=== PATIENT | female | born 1985 ===

== ENCOUNTER 2021-07-16 10:35 | Inpatient (IN) | payer BC ==
[2021-07-16] MEDS ORDERED: CITRIC ACID/SODIUM CITRATE 30 ML UNIT-DOSE CUP PO ONE (12:15)
[2021-07-16] MEDS ORDERED: ELECTROLYTE-148 SOLN 1,000 ML IV ONE (12:15)
[2021-07-16] MEDS ORDERED: ELECTROLYTE-148 SOLN 1,000 ML IV SCH ×2 (12:15→14:15)
[2021-07-16 12:50] VITALS: BMI 31.7
[2021-07-16] MEDS ORDERED: morphine SULFATE/PF 1 MG/2 ML (2cc Syringe - QUVA) ONE (13:12)
[2021-07-16] MEDS ORDERED: KETOROLAC TROMETHAMINE 30 MG/1 ML VIAL ONE (13:16)
[2021-07-16] MEDS ORDERED: ONDANSETRON 4 MG/2 ML VIAL ONE (13:16)
[2021-07-16] MEDS ORDERED: PHENYLEPHRINE HCL 10 MG/1 ML SINGLE DOSE VIAL ONE (13:16)
[2021-07-16] MEDS ORDERED: ceFAZolin SODIUM 1 GM VIAL ONE (13:16)
[2021-07-16] MEDS ORDERED: OXYTOCIN 10 UNITS/ML VIAL ONE (13:16)
[2021-07-16] MEDS ORDERED: ELECTROLYTE-148 SOLN 500 ML IV ONE (14:14)
[2021-07-16] MEDS ORDERED: morphine SULFATE/PF 1 MG/2 ML (2cc Syringe - QUVA) IT ONE (14:16)
[2021-07-16] MEDS ORDERED: ePHEDrine SULFATE 50 MG/1 ML AMPULE ONE (14:19)
[2021-07-16] MEDS ORDERED: ONDANSETRON 4 MG/2 ML VIAL IVPUSH PRN (15:14)
[2021-07-16] MEDS ORDERED: ACETAMINOPHEN 1000 MG/100 ML BAG IVPB ONE (15:16)
[2021-07-16] MEDS ORDERED: ACETAMINOPHEN 325 MG TABLET (FP) PO PRN (16:15)
[2021-07-16] MEDS ORDERED: OXYTOCIN 20 UNITS in 0.9% NS 20 UNIT/1,000 ML INFUS.BAG IV ONE (16:25)
[2021-07-16] MEDS: OXYTOCIN 20 UNITS in 0.9% NS 20 UNIT/1,000 ML INFUS.BAG IV SCH (16:30)
[2021-07-16] MEDS ORDERED: ACETAMINOPHEN INJECTION 100 ML IVPB ONE (16:43)
[2021-07-16] MEDS: METHYLERGONOVINE MALEATE 0.2 MG/1 ML AMP IM PRN ×2 (19:51→23:34)
[2021-07-16] MEDS: IBUPROFEN 800 MG/8 ML IJ IVPB PRN (20:48)
[2021-07-17] MEDS: METHYLERGONOVINE MALEATE 0.2 MG/1 ML AMP IM PRN (03:15)
[2021-07-17] MEDS: IBUPROFEN 800 MG/8 ML IJ IVPB PRN (03:16)
[2021-07-17] MEDS: OXYTOCIN 20 UNITS in 0.9% NS 20 UNIT/1,000 ML INFUS.BAG IV SCH (06:28)
[2021-07-17 08:20] LABS: BASO % 0.2 % (0-2.0); EOS % 0.7 % (0-4.5); HEMATOCRIT 28.5 % (32.4-45.2); HEMOGLOBIN 9.2 GM/dL (10.7-15.3); LYMPH % 13.5 % (8-40); MCH 25.8 pg (25.7-33.7); MCHC 32.2 g/dl (32.0-36.0); MEAN CELL VOLUME 80.2 fl (80-96); MEAN PLT VOLUME 7.3 fl (7.5-11.1); MONO % 6.3 % (3.8-10.2); NEUT % 79.3 % (42.8-82.8); PLATELET COUNT 347 10^3/uL (134-434); RBC 3.56 M/mm3 (3.60-5.2); WHITE BLOOD COUNT 12.7 K/mm3 (4.0-10.0)
[2021-07-17] MEDS ORDERED: SUCCINYLCHOLINE CHLORIDE 200 MG/10 ML SYRINGE ONE (08:26)
[2021-07-17] MEDS: PRENATAL VITAMINS W/ FOLIC ACID TABLET (FP) PO SCH (09:14)
[2021-07-17] MEDS: oxyCODONE HCL 5 MG TABLET PO PRN ×2 (09:36→15:46)
[2021-07-17] MEDS: SIMETHICONE 80 MG TAB.CHEW (FP) PO PRN ×3 (09:36→20:47)
[2021-07-17] MEDS: IBUPROFEN 600 MG TABLET (FP) PO PRN ×2 (13:13→20:47)
[2021-07-17] MEDS ORDERED: BISACODYL 10 MG SUPP.RECT RC PRN (16:15)
[2021-07-17] MEDS: SENNOSIDES/DOCUSATE COMBO (SENNA PLUS) TABLET (UD) PO PRN (20:47)
[2021-07-18] MEDS: oxyCODONE HCL 5 MG TABLET PO PRN ×3 (07:43→22:23)
[2021-07-18] MEDS: SIMETHICONE 80 MG TAB.CHEW (FP) PO PRN ×4 (07:43→20:47)
[2021-07-18] MEDS: PRENATAL VITAMINS W/ FOLIC ACID TABLET (FP) PO SCH (09:55)
[2021-07-18] MEDS: IBUPROFEN 600 MG TABLET (FP) PO PRN ×2 (12:26→20:47)
[2021-07-18] MEDS: SENNOSIDES/DOCUSATE COMBO (SENNA PLUS) TABLET (UD) PO PRN (20:47)
[2021-07-18] MEDS: METHYLERGONOVINE MALEATE 0.2 MG/1 ML AMP IM PRN (22:21)
[2021-07-18 22:54] LABS: BASO % 0.5 % (0-2.0); EOS % 2.2 % (0-4.5); HEMOGLOBIN 8.2 GM/dL (10.7-15.3); MCH 26.1 pg (25.7-33.7); MCHC 32.8 g/dl (32.0-36.0); MEAN CELL VOLUME 79.5 fl (80-96); MEAN PLT VOLUME 7.2 fl (7.5-11.1); MONO % 7.3 % (3.8-10.2); PLATELET COUNT 366 10^3/uL (134-434); RBC 3.15 M/mm3 (3.60-5.2); RDW 15.1 % (11.6-15.6); WHITE BLOOD COUNT 8.7 K/mm3 (4.0-10.0)
[2021-07-19] MEDS: IBUPROFEN 600 MG TABLET (FP) PO PRN ×2 (02:20→09:45)
[2021-07-19] MEDS: METHYLERGONOVINE MALEATE 0.2 MG/1 ML AMP IM PRN ×2 (02:20→06:22)
[2021-07-19 06:25] VITALS: PULSE 80
[2021-07-19] MEDS: SIMETHICONE 80 MG TAB.CHEW (FP) PO PRN ×2 (06:32→09:45)
[2021-07-19] MEDS: oxyCODONE HCL 5 MG TABLET PO PRN (06:33)
[2021-07-19 06:45] LABS: BASO % 0.5 % (0-2.0); EOS % 2.5 % (0-4.5); HEMATOCRIT 26.3 % (32.4-45.2); HEMOGLOBIN 8.5 GM/dL (10.7-15.3); LYMPH % 30.2 % (8-40); MCH 26.3 pg (25.7-33.7); MCHC 32.5 g/dl (32.0-36.0); MEAN CELL VOLUME 80.7 fl (80-96); MEAN PLT VOLUME 7.9 fl (7.5-11.1); MONO % 6.6 % (3.8-10.2); NEUT % 60.2 % (42.8-82.8); PLATELET COUNT 377 10^3/uL (134-434); RBC 3.25 M/mm3 (3.60-5.2); RDW 15.1 % (11.6-15.6); WHITE BLOOD COUNT 7.4 K/mm3 (4.0-10.0)
[2021-07-19] MEDS: PRENATAL VITAMINS W/ FOLIC ACID TABLET (FP) PO SCH (09:45)
[2021-07-19 11:00] VITALS: BP 108/65; TEMP 98
== END 2021-07-19 12:45 | disposition home or self-care (01) | DRG 788 ==
LOC: JLDR 10:35 → J3W 17:40
PROVIDERS: ADMIT Obstetrics & Gynecology; ATTEND Obstetrics & Gynecology
PROC: 10D00Z1 Extraction of Products of Conception, Low, Open Approach (ICD-10-PCS; principal; 2021-07-16)
DX: O34.211 Maternal care for low transverse scar from previous cesarean delivery (principal); Z3A.39 39 weeks gestation of pregnancy; Z37.0 Single live birth
CPT/HCPCS: 36415; 85025; 88307-TC; J0131